=== PATIENT | female | born 1970 | race African-American/Black ===

== ENCOUNTER 2020-01-24 08:12 | Emergency (ER) | payer SELFPAY ==
[~2020-01-24] VITALS: Ht 162.6 cm; Wt 89.0 kg
[2020-01-24] MEDS ORDERED: ALBUTEROL 6.7GM HFA INHALER ORI ONE (09:00)
[2020-01-24 09:20] VITALS: BP 105/78
== END 2020-01-24 09:28 | disposition home or self-care (01) ==
LOC: ER 08:12
DX: J45.901 Unspecified asthma with (acute) exacerbation (principal); Z98.890 Other specified postprocedural states
CPT/HCPCS: 99283